=== PATIENT | female | born 1950 | race Caucasian/White ===

== ENCOUNTER 2018-09-06 18:15 | Observation (INO) ==
[2018-09-06] MEDS ORDERED: Naloxone 0.4 MG/ML INJ IVP PRN (20:27)
[2018-09-06] MEDS ORDERED: Ondansetron 4 MG/2 ML VIAL IVP PRN (20:27)
--- NOTE | 2018-09-06 20:39 | Internal Med History&Physical ---
Date of Encounter: 09/06/18 Time of Encounter: 20:39 Internal Medicine - H&P: HPI Chief complaint: Flank pain History of present illness: Ms. Naylor is a 67 year old female with PMH of hyperlipidemia, tradive dyskinesia , HLD, GERD and long history of kidney stones who presented from [facility] for UTI, Kidney stone and hydronephrosis. The patient presented with Left lower quadrant pain, left mid back pain associated with nausea with no vomiting. The patient describes the pain as sharp in character with no radiation and associated with decreased urinary frequency. The patient has a log history of kidney stone that she used to pass spontaneously. The patient was evaluated by the ER staff and CT scan of the abdomen revealed 11 mm stone within the left renal pelvis with mild left hydronephrosis, urology was consulted and patient was transferred to [facility] for further evaluation and management. Past Med Surg Social Fam HX - Past Medical History Medical history: COPD, hyperlipidemia, kidney stones - Family History Mother Living Status: Cause of : kidney failure Father Living Status: Cause of : prostate cancer Internal Medicine - H&P: Meds Albuterol Neb [Proventil Neb] 2.5 mg IH Q6HR PRN 09/06/18 [History] Albuterol Sulfate [Ventolin Hfa] 2 puff IN Q6HR PRN 09/06/18 [History] Ascorbate Calcium/Bioflavonoid [Deisy-C 1,000 mg Tablet] 1 each PO DAILY 09/06 [History] Aspirin [Lo-Dose Aspirin EC] 81 mg PO BID 09/06/18 [History] Cholecalciferol (D-3) [Vitamin D] 1,000 unit PO DAILY 09/06/18 [History] Cyanocobalamin (Vitamin B-12) [Vitamin B12] 500 mcg PO DAILY 09/06/18 [History] Duloxetine HCl [Cymbalta] 60 mg PO BID 09/06/18 [History] Fluticasone/Salmeterol [Advair 100-50 Diskus] 1 each IH BID 09/06/18 [History] Gabapentin [Neurontin] 600 mg PO TID 09/06/18 [History] Multivitamin [Daily Multiple Vitamin] 1 each PO DAILY 09/06/18 [History] [place]-3S/Dha/Epa/Fish Oil [Fish Oil 1,200 mg Softgel] 1,200 mg PO BID 09/06/18 [History] Omeprazole [PriLOSEC] 40 mg PO DAILY 09/06/18 [History] RisperiDONE [Risperdal] 0.5 mg PO DAILY 09/06/18 [History] Rosuvastatin [Crestor] 20 mg PO HS 09/06/18 [History] Ubidecarenone [Coenzyme Q10] 100 mg PO DAILY 09/06/18 [History] Vitamin E 400 unit PO DAILY 09/06/18 [History] clonazePAM [Clonazepam] 0.5 mg PO TID 09/06/18 [History] Allergy/AdvReac Type Severity Reaction Status Date / Time Penicillins Allergy Hives Verified 07/11/18 11:27 phenobarbital Allergy See Verified 09/06/18 20:50 Comments adhesive tape AdvReac See Verified 09/06/18 20:50 Comments codeine AdvReac Difficulty Verified 07/11/18 11:28 Breathing All Systems PM: A 10-system review of systems was performed and is negative for pertinent findings except as documented above in the HPI. - Constitutional Vitals: Temp Pulse Resp BP Pulse Ox 99.0 F 93 17 91/61 96 09/06/18 20:24 09/06/18 20:24 09/06/18 20:24 09/06/18 20:24 09/06/18 20:24 General appearance: Present: A&O X 3 Exam: ` - Head Head exam: Present: atraumatic, normocephalic - Neck Neck exam general surgery: Present: supple, trachea midline. Absent: lymphadenopathy - Respiratory Respiratory exam: Present: CTAB. Absent: accessory muscle use, rales, rhonchi, wheezes - Cardiovascular Cardiovascular exam: Present: RRR, +S1, +S2. Absent: diastolic murmur, gallop, rubs, systolic murmur - GI/Abdominal GI/Abdominal exam: Present: normal bowel sounds, soft, no peritoneal signs. Absent: distended, tenderness - Extremities Exam Extremities exam: Present: warm, radial pulses palpable and symmetrical. Absent: calf tenderness, cyanotic, pedal edema Internal Med - H&P Results - Labs CBC & Chem 7: 09/06/18 21:05 09/06/18 21:05 - Assessment and Plan (1) UTI (urinary tract infection) Current Visit: Yes Status: Acute Assessment and plan: We will start the patient on empiric antibiotic with Rocephin. We will obtain blood culture, urine culture and adjust antibiotic regimen accordingly if indicated. Qualifiers: Qualified Code(s): N39.0 - Urinary tract infection, site not specified (2) Kidney stone Current Visit: Yes Status: Acute Assessment and plan: Urology was consulted for further evaluation and management and will see the patient in a.m. (3) Hydronephrosis Current Visit: Yes Status: Acute Assessment and plan: Urology was consulted for further evaluation and management and will see the patient in a.m. Qualifiers: Qualified Code(s): N13.30 - Unspecified hydronephrosis (4) Hyperlipidemia Current Visit: Yes Status: Acute Assessment and plan: We will continue home statin and obtain fasting profile in a.m. Qualifiers: Qualified Code(s): E78.5 - Hyperlipidemia, unspecified (5) COPD (chronic obstructive pulmonary disease) Current Visit: Yes Status: Acute Assessment and plan: We will start the patient on DuoNeb Qualifiers: Qualified Code(s): J44.9 - Chronic obstructive pulmonary disease, unspecified (6) DVT prophylaxis Current Visit: Yes Status: Acute Assessment and plan: We will start the patient on SCDs. - Time Spent With Patient Total time spent is greater than 50% in coordination of care (as documented) at patient's floor/unit and/or counseling patient:
[2018-09-06 21:17] LABS: Basophils % 0.2 %; Hematocrit 39.5 % (35.3-44.9); Hemoglobin 12.1 g/dL (11.5-15.4); Immature Granulocytes % 0.8 % (0-4); Lymphocytes # 0.7 K/mcL (0.6-4.6); Lymphocytes % 5.2 %; Mean Corpuscular HGB Conc 30.6 g/dL (31.6-35.5); Mean Corpuscular Hemoglobin 28.3 pg (28.0-33.3); Mean Corpuscular Volume 92.3 fL (83.0-100.0); Mean Platelet Volume 10.8 fL (9.4-12.4); Monocytes % 7.1 %; Neutrophils # 12.3 K/mcL (1.6-8.9); Platelet Count 225 K/mcL (140-400); Red Blood Count 4.28 M/mcL (3.82-4.97); Red Cell Distribution Width 14.7 % (11.5-14.5); Segmented Neutrophils % 86.7 %; White Blood Count 14.2 K/mcL (4.3-11.1)
[2018-09-06 21:25] LABS: INR 1.2; Prothrombin Time 13.8 Seconds (9.4-12.1)
[2018-09-06 21:28] LABS: Activated Partial Thrombo Time 30.9 Seconds (26.0-36.0)
[2018-09-06 21:37] LABS: Alanine Aminotransferase 8 Units/L (7-52); Albumin 3.5 g/dL (3.5-5.7); Albumin/Globulin Ratio 1.3 (1.1-2.2); Alkaline Phosphatase 65 Units/L (34-104); Aspartate Amino Transferase 15 Units/L (13-39); BUN/Creatinine Ratio 13 (6-26); Blood Urea Nitrogen 11 mg/dL (8-23); Calcium 9.2 mg/dL (8.6-10.3); Carbon Dioxide 29 mEq/L (23-29); Chloride 101 mEq/L (98-107); Globulin 2.7 g/dL (2.4-3.5); Glucose 114 mg/dL (70-105); Magnesium 1.5 mg/dL (1.6-2.6); Osmolality,Calculated 284 (280-300); Phosphorous 2.1 mg/dL (2.7-4.5); Potassium 3.6 mEq/L (3.5-5.1); Sodium 137 mEq/L (136-145); Total Protein 6.2 g/dL (6.4-8.9); eGFR For African Americans > 60 (> 60); eGFR For Non-African Americans > 60 (> 60)
[2018-09-06 22:14] LABS: Bilirubin,Urine Negative (Negative); Blood,Urine Large (Negative); Clarity,Urine Cloudy (Clear); Color,Urine Yellow (Yellow); Glucose,Urine (UA) Normal (Normal); Ketones,Urine Negative (Negative); Leukocyte Esterase,Urine Large (Negative); Nitrite,Urine Positive (Negative); Protein,Urine 100 mg/dL (Neg-Trace); Specific Gravity,Urine > 1.030 (1.010-1.025); Urobilinogen,Urine Normal (Normal)
[2018-09-06 22:16] LABS: Bacteria,Urine None Seen per hpf (None-Few); Hyaline Casts,Urine None Seen per lpf (None-Few); RBC,Urine 30-50 per hpf (0-3); Squamous Epithelial Cell,Urine Many per lpf (None-Few); WBC,Urine TNTC per hpf (0-3)
[2018-09-07] MEDS: 0.9 % Sodium Chloride 1,000 ML IVC SCH ×2 (00:17→09:56)
[2018-09-07] MEDS: Acetaminophen 325 MG TABLET PO PRN ×3 (00:49→14:17)
[2018-09-07] MEDS ORDERED: cefTRIAXone 1,000 MG in Water for inj. (sterile) 10 ML IVPB ONE (01:32)
[2018-09-07 02:04] LABS: Chol/HDL Ratio 2.2 (0-4.9)
[2018-09-07] MEDS ORDERED: Naloxone 0.4 MG/ML INJ IVP PRN ×2 (07:37→19:45)
[2018-09-07 09:45] LABS: Basophils % 0.2 %; Eosinophils # 0.1 K/mcL (0.0-0.6); Eosinophils % 0.4 %; Hematocrit 39.9 % (35.3-44.9); Hemoglobin 12.1 g/dL (11.5-15.4); Immature Granulocytes % 0.5 % (0-4); Lymphocytes # 1.1 K/mcL (0.6-4.6); Lymphocytes % 9.6 %; Mean Corpuscular HGB Conc 30.3 g/dL (31.6-35.5); Mean Corpuscular Volume 92.4 fL (83.0-100.0); Mean Platelet Volume 10.7 fL (9.4-12.4); Monocytes % 8.8 %; Neutrophils # 9.2 K/mcL (1.6-8.9); Platelet Count 209 K/mcL (140-400); Red Blood Count 4.32 M/mcL (3.82-4.97); Segmented Neutrophils % 80.5 %; White Blood Count 11.5 K/mcL (4.3-11.1)
[2018-09-07 09:56] LABS: Alanine Aminotransferase 8 Units/L (7-52); Albumin 3.7 g/dL (3.5-5.7); Albumin/Globulin Ratio 1.4 (1.1-2.2); Alkaline Phosphatase 68 Units/L (34-104); Aspartate Amino Transferase 14 Units/L (13-39); BUN/Creatinine Ratio 16 (6-26); Blood Urea Nitrogen 13 mg/dL (8-23); Calcium 9.3 mg/dL (8.6-10.3); Carbon Dioxide 27 mEq/L (23-29); Chloride 104 mEq/L (98-107); Globulin 2.6 g/dL (2.4-3.5); Glucose 100 mg/dL (70-105); Magnesium 1.6 mg/dL (1.6-2.6); Osmolality,Calculated 284 (280-300); Phosphorous 3.1 mg/dL (2.7-4.5); Potassium 3.6 mEq/L (3.5-5.1); Sodium 137 mEq/L (136-145); Total Protein 6.3 g/dL (6.4-8.9); eGFR For African Americans > 60 (> 60); eGFR For Non-African Americans > 60 (> 60)
[2018-09-07 10:04] LABS: INR 1.3; Prothrombin Time 14.3 Seconds (9.4-12.1)
[2018-09-07 10:07] LABS: Activated Partial Thrombo Time 31.3 Seconds (26.0-36.0)
--- NOTE | 2018-09-07 11:26 | Urology - Consult Note ---
Date of Encounter: 09/07/18 Time of Encounter: 10:45 - Assessment and Plan (1) Hydronephrosis Current Visit: Yes Status: Acute Assessment and plan: Patient is 67-year-old female who presents with an 11 mm left renal pelvis stone and hydronephrosis. Renal function is reassuring with a GFR greater than 60. Patient is tentatively scheduled to undergo urinary diversion by ureteral stent placement later this afternoon with Dr. Jimenez. Qualifiers: Hydronephrosis type: with renal calculous obstruction Qualified Code(s): N13.2 - Hydronephrosis with renal and ureteral calculous obstruction (2) Kidney stone Current Visit: Yes Status: Acute Assessment and plan: Patient is a 67-year-old female who presents with an 11 mm left renal pelvis stone. We discussed surgical risks and benefits, and patient verbalized understanding. Patient is to remain nothing by mouth, and she has signed a surgical consent. Patient is prepared undergo a cystoscopy and left ureteral stent placement later this afternoon with Dr. Jimenez. Patient is aware she will require a staged stone extraction procedure as an outpatient. (3) UTI (urinary tract infection) Current Visit: Yes Status: Acute Assessment and plan: Patient is a 67-year-old female who presents with a history of a nitrate posi tive urinalysis. Blood and urine cultures are pending. Vital signs are stable and afebrile. White blood cell count on admission was 14.2 and is now 11.5. Patient has received IV Rocephin. We will continue to follow urine culture. Qualifiers: Urinary tract infection type: site unspecified Hematuria presence: without hematuria Qualified Code(s): N39.0 - Urinary tract infection, site not specified Urology CN:HPI Consult date: 09/07/18 Reason for consult Urology: Hydronephrosis (left renal stone; UTI) Requesting physician: Rachel Powers History of present illness: Patient is a 67-year-old female who presents with an 11 mm left renal pelvis stone, hydronephrosis and a urinary tract infection. Patient initially presented to [facility] with acute onset of left flank pain, left upper abdominal pain and nausea. Patient underwent a CT of the abdomen and pelvis revealing an 11 mm left renal pelvis stone and hydronephrosis. Patient was also found to have a nitrite positive urinalysis. Patient was subsequently transferred to [facility] for urologic intervention. Patient reports a long-standing history of nephrolithiasis, and she states her last stone was approximately 10 years ago. Patient reports passing all prior stones by medical expulsion. Patient has a significant family history of renal stones through her mother and father. Currently, patient is sitting upright in chair in no apparent distress, and she denies any dysuria, gross hematuria, fever or chills. Past Med Surg Social Fam HX - Past Medical History Medical history: COPD, hyperlipidemia, kidney stones Additional medical history: tardive dyskinesia, osteoarthritis Psychiatric history: anxiety, depression - Past Surgical History Surgical History: appendectomy, cholecystectomy, hysterectomy, knee replacement - Social History Smoking Status: Never smoker Alcohol use: none Drug use: none - Family History Mother Living Status: Cause of : kidney failure Father Living Status: Cause of : prostate cancer Medications and Allergies Albuterol Neb [Proventil Neb] 2.5 mg IH Q6HR PRN 09/06/18 [History] Albuterol Sulfate [Ventolin Hfa] 2 puff IN Q6HR PRN 09/06/18 [History] Ascorbate Calcium/Bioflavonoid [Deisy-C 1,000 mg Tablet] 1 each PO DAILY 09/06/18 [History] Aspirin [Lo-Dose Aspirin EC] 81 mg PO BID 09/06/18 [History] Cholecalciferol (D-3) [Vitamin D] 1,000 unit PO DAILY 09/06/18 [History] Cyanocobalamin (Vitamin B-12) [Vitamin B12] 500 mcg PO DAILY 09/06/18 [History] Duloxetine HCl [Cymbalta] 60 mg PO BID 09/06/18 [History] Fluticasone/Salmeterol [Advair 100-50 Diskus] 1 each IH BID 09/06/18 [History] Gabapentin [Neurontin] 600 mg PO TID 09/06/18 [History] Multivitamin [Daily Multiple Vitamin] 1 each PO DAILY 09/06/18 [History] [place]-3S/Dha/Epa/Fish Oil [Fish Oil 1,200 mg Softgel] 1,200 mg PO BID 09/06/18 [History] Omeprazole [PriLOSEC] 40 mg PO DAILY 09/06/18 [History] RisperiDONE [Risperdal] 0.5 mg PO DAILY 09/06/18 [History] Rosuvastatin [Crestor] 20 mg PO HS 09/06/18 [History] Ubidecarenone [Coenzyme Q10] 100 mg PO DAILY 09/06/18 [History] Vitamin E 400 unit PO DAILY 09/06/18 [History] clonazePAM [Clonazepam] 0.5 mg PO TID 09/06/18 [History] Allergy/AdvReac Type Severity Reaction Status Date / Time Penicillins Allergy Hives Verified 07/11/18 11:27 phenobarbital Allergy See Verified 09/06/18 20:50 Comments adhesive tape AdvReac See Verified 09/06/18 20:50 Comments codeine AdvReac Difficulty Verified 07/11/18 11:28 Breathing Review of Systems - Constitutional no chills, no fatigue, no fever(s) - EENT Nose, mouth and throat: no dizziness, no headache(s) - Cardiovascular no chest pain, no diaphoresis, no dyspnea - Respiratory no cough, no dyspnea - Gastrointestinal abdominal pain, nausea, no vomiting - Genitourinary Genitourinary: flank pain, no change in urinary stream, no difficulty urinating, no dysuria, no hematuria, no urinary frequency, no urinary hesitancy, no urinary incontinence, no urinary urgency - Integumentary no erythema, no rash - Neurological other (Patient has tardive dyskinesia), no confusion, no syncope - Psychiatric no anxiety, no confusion - Hematologic/Lymphatic no easy bleeding, no easy bruising - Allergic/Immunologic no throat swelling, no wheezing Exam Initial Vital Signs Temp Pulse Resp BP Pulse Ox 99.0 F 93 17 91/61 96 09/06/18 20:24 09/06/18 20:24 09/06/18 20:24 09/06/18 20:24 09/06/18 20:24 - General physical appearance Present: no distress, no pain, obese - Eyes Present: PERRL, normal ocular movement - ENT Present: normal nares, no hearing loss, no congestion - Neck Present: no masses, trachea midline, no lymphadenopathy - Respiratory Present: normal respiratory effort - Cardiovascular Cardiovascular exam IM: RRR - Abdomen Abdomen: Present: soft, non tender, surgical scars (Midline laparotomy). Absent: distended - Genitourinary Present: other (No CVAT) - Integumentary Present: no rash, no abnormal pigmentation - Neurologic Present: normal coordination, other (Tardive dyskinesia; facial tremor) - Musculoskeletal Present: other (Normal posture) Urology Results - Labs 09/07/18 09:25 09/07/18 09:25 Abnormal lab results WBC 11.5 K/mcL (4.3-11.1) H 09/07/18 09:25 MCHC 30.3 g/dL (31.6-35.5) L 09/07/18 09:25 RDW 15.0 % (11.5-14.5) H 09/07/18 09:25 Neutrophils # 9.2 K/mcL (1.6-8.9) H 09/07/18 09:25 PT 14.3 Seconds (9.4-12.1) H 09/07/18 09:25 Glucose 114 mg/dL (70-105) H 09/06/18 21:05 Phosphorus 2.1 mg/dL (2.7-4.5) L 09/06/18 21:05 Magnesium 1.5 mg/dL (1.6-2.6) L 09/06/18 21:05 Serum Total Protein 6.3 g/dL (6.4-8.9) L 09/07/18 09:25 Urine Clarity Cloudy (Clear) A 09/06/18 21:50 Ur Specific [place] > 1.030 (1.010-1.025) H 09/06/18 21:50 Urine Protein 100 mg/dL (Neg-Trace) H 09/06/18 21:50 Urine Blood Large (Negative) H 09/06/18 21:50 Urine Nitrite Positive (Negative) A 09/06/18 21:50 Ur Leukocyte Esterase Large (Negative) H 09/06/18 21:50 Urine Microscopic RBC 30-50 per hpf (0-3) H 09/06/18 21:50 Urine Microscopic WBC TNTC per hpf (0-3) H 09/06/18 21:50 Ur Squamous Epith Cells Many per lpf (None-Few) H 09/06/18 21:50 Diabetes panel 09/06/18 09/07/18 09/07/18 Range/Units 21:05 00:22 09:25 Sodium 137 137 (136-145) mEq/L Potassium 3.6 3.6 (3.5-5.1) mEq/L Chloride 101 104 (98-107) mEq/L Carbon Dioxide 29 27 (23-29) mEq/L BUN 11 13 (8-23) mg/dL Creatinine 0.84 0.81 (0.60-1.20) mg/dL Glucose 114 H 100 (70-105) mg/dL Calcium 9.2 9.3 (8.6-10.3) mg/dL AST 15 14 (13-39) Units/L ALT 8 8 (7-52) Units/L Alkaline Phosphatase 65 68 (34-104) Units/L Albumin 3.5 3.7 (3.5-5.7) g/dL Triglycerides 92 (< 150) mg/dL HDL Cholesterol 48 (40-59) mg/dL Calcium panel 09/06/18 09/07/18 Range/Units 21:05 09:25 Calcium 9.2 9.3 (8.6-10.3) mg/dL Phosphorus 2.1 L 3.1 (2.7-4.5) mg/dL Albumin 3.5 3.7 (3.5-5.7) g/dL Pituitary panel 09/06/18 09/07/18 Range/Units 21:05 09:25 Sodium 137 137 (136-145) mEq/L Potassium 3.6 3.6 (3.5-5.1) mEq/L Chloride 101 104 (98-107) mEq/L Carbon Dioxide 29 27 (23-29) mEq/L BUN 11 13 (8-23) mg/dL Creatinine 0.84 0.81 (0.60-1.20) mg/dL Glucose 114 H 100 (70-105) mg/dL Calcium 9.2 9.3 (8.6-10.3) mg/dL Adrenal panel 09/06/18 09/07/18 Range/Units 21:05 09:25 Sodium 137 137 (136-145) mEq/L Potassium 3.6 3.6 (3.5-5.1) mEq/L Chloride 101 104 (98-107) mEq/L Carbon Dioxide 29 27 (23-29) mEq/L BUN 11 13 (8-23) mg/dL Creatinine 0.84 0.81 (0.60-1.20) mg/dL Glucose 114 H 100 (70-105) mg/dL Calcium 9.2 9.3 (8.6-10.3) mg/dL Total Bilirubin 1.0 1.0 (0.3-1.0) mg/dL AST 15 14 (13-39) Units/L ALT 8 8 (7-52) Units/L Alkaline Phosphatase 65 68 (34-104) Units/L Albumin 3.5 3.7 (3.5-5.7) g/dL All other labs normal. - Imaging Abdominal x-ray: report reviewed, image reviewed Consult Discharge Plan - Plan Referrals: Yoav Franco DO [Primary Care Provider] -
--- NOTE | 2018-09-07 11:58 | Internal Med Progress Note ---
Hospitalist Progress Note - Encounter Date of Encounter: 09/07/18 Time of Encounter: 11:55 - Subjective Interval History: Patient admitted last night for kidney stone in conjunction with urinary tract infection. Pain control currently, however, given size of stone will be going for urological procedure today - Exam Vitals: Temp Pulse Resp BP Pulse Ox 98.3 F 80 16 94/64 94 09/07/18 06:29 09/07/18 06:29 09/07/18 06:29 09/07/18 06:29 09/07/18 06:29 Exam: General: Ill-appearing and in no acute distress HEENT: No erythema of posterior pharynx. No exudates. Lymphatics: No mandibular or cervical lymphadenopathy Cardiovascular: RRR. No murmurs. No chest wall tenderness. Lungs: Clear to auscelltation bilaterally. Regular chest rise. Abdomen: Mild R flank tenderness. No rebound or gaurding. Nl bowel sounds. Extremities: No edema. 2+ pulses radial and pedal pulses Skin: No rahses, abrasions, or contusions. Nl cap refill. Psych: Nl attention. A&Ox3 Neuro: mathematical technician II-XII intact. 5/5 strength. Sensation to light touch and pinprick intact. - Assessment and Plan (1) Kidney stone Current Visit: Yes Status: Acute Assessment and Plan: Patient with history of infrequent renal stones presents with acute colicky left flank pain in the setting of UA with large amount of blood and concern for infection and imaging with 11 mm left renal pelvis stone with hydronephrosis. -Pain currently controlled -Given size of stone, will need urological intervention with ureteral stent placement this afternoon. She will need a staged stone extraction procedure as outpatient PLAN: - Ureteral stent placement this afternoon - Pain control (2) Hydronephrosis Current Visit: Yes Status: Acute Assessment and Plan: See above (3) UTI (urinary tract infection) Current Visit: Yes Status: Acute Assessment and Plan: Unclear if this represents acute cystitis versus asymptomatic bacteriuria. In the setting of obstructive process with kidney stone, reasonable to treat with antibiotics. - IV ceftriaxone - Follow up culture (4) COPD (chronic obstructive pulmonary disease) Current Visit: Yes Status: Acute Assessment and Plan: Continue home medications DVT Prophylaxis: Lovenox - Time Spent with Patient Total time spent is greater than 50% in coordination of care (as documented) at patient's floor/unit and/or counseling patient: Greater than 35 minutes Plan of Care Discussed with: patient Internal Medicine: Result - Labs CBC & Chem 7: 09/07/18 09:25 09/07/18 09:25 Labs: Short CBC 09/06/18 09/07/18 Range/Units 21:05 09:25 WBC 14.2 H 11.5 H (4.3-11.1) K/mcL Hgb 12.1 12.1 (11.5-15.4) g/dL Hct 39.5 39.9 (35.3-44.9) % Plt Count 225 209 (140-400) K/mcL Neutrophils # 12.3 H 9.2 H (1.6-8.9) K/mcL BMP 09/06/18 09/07/18 21:05 09:25 Sodium 137 137 Potassium 3.6 3.6 Chloride 101 104 Carbon Dioxide 29 27 BUN 11 13 Creatinine 0.84 0.81 Glucose 114 H 100 Calcium 9.2 9.3 Liver Function 09/06/18 09/07/18 Range/Units 21:05 09:25 Total Bilirubin 1.0 1.0 (0.3-1.0) mg/dL AST 15 14 (13-39) Units/L ALT 8 8 (7-52) Units/L Alkaline Phosphatase 65 68 (34-104) Units/L Albumin 3.5 3.7 (3.5-5.7) g/dL Urine 09/06/18 Range/Units 21:50 Urine Color Yellow (Yellow) Urine Clarity Cloudy A (Clear) Urine pH 6.0 (5.0-8.0) pH Units Ur Specific [place] > 1.030 H (1.010-1.025) Urine Protein 100 H (Neg-Trace) mg/dL Urine Glucose (UA) Normal (Normal) mg/dL - ABG Interpretation ABG results: PT/INR, D-dimer PT 14.3 Seconds (9.4-12.1) H 09/07/18 09:25 - Impressions Impressions KUB X-Ray 09/07/18 06:34 IMPRESSION: 1.1 cm x 7 mm stone left side of the abdomen correlating to the calculus seen on CT from 1 day earlier. D/ / 09/07/2018 08:31:47 Mario Gifford MD / [email or web address] Interpreting Provider: Mario Gifford MD Consult Discharge Plan - Plan Referrals: Yoav Franco DO [Primary Care Provider] - (2) Hydronephrosis Qualifiers: Hydronephrosis type: with renal calculous obstruction Qualified Code(s): N13.2 - Hydronephrosis with renal and ureteral calculous obstruction (3) UTI (urinary tract infection) Qualifiers: Urinary tract infection type: site unspecified Hematuria presence: with hematuria Qualified Code(s): N39.0 - Urinary tract infection, site not specified; R31.9 - Hematuria, unspecified (4) COPD (chronic obstructive pulmonary disease) Qualifiers: Qualified Code(s): J44.9 - Chronic obstructive pulmonary disease, unspecified
[2018-09-07] MEDS ORDERED: Albuterol 2.5 MG/3 ML NEBULIZER IH PRN ×2 (12:04→19:45)
[2018-09-07] MEDS ORDERED: Gabapentin 300 MG CAPSULE PO SCH (15:00)
--- NOTE | 2018-09-07 17:58 | Anesthesia Evaluation PreOp ---
Date of Encounter: 09/07/18 Time of Encounter: 18:00 - Past History Planned Operation: Cystoscopy Stent Cardiac History: Hyperlipidemia Pulmonary History: COPD CRITICAL CARE PHYSICIAN ASSISTANT History: Other (Tardive Dyskinesia) Other Medical History: Denies Any Significant HX, GERD, Other ([place]) Anesthesia History: No Prior Anesthetic Complications Alcohol Use: none Drug use: none Medications and Allergies Albuterol Neb [Proventil Neb] 2.5 mg IH Q6HR PRN 09/06/18 [History] Albuterol Sulfate [Ventolin Hfa] 2 puff IN Q6HR PRN 09/06/18 [History] Ascorbate Calcium/Bioflavonoid [Deisy-C 1,000 mg Tablet] 1 each PO DAILY 09/06/18 [History] Aspirin [Lo-Dose Aspirin EC] 81 mg PO BID 09/06/18 [History] Cholecalciferol (D-3) [Vitamin D] 1,000 unit PO DAILY 09/06/18 [History] Cyanocobalamin (Vitamin B-12) [Vitamin B12] 500 mcg PO DAILY 09/06/18 [History] Duloxetine HCl [Cymbalta] 60 mg PO BID 09/06/18 [History] Fluticasone/Salmeterol [Advair 100-50 Diskus] 1 each IH BID 09/06/18 [History] Gabapentin [Neurontin] 600 mg PO TID 09/06/18 [History] Multivitamin [Daily Multiple Vitamin] 1 each PO DAILY 09/06/18 [History] [place]-3S/Dha/Epa/Fish Oil [Fish Oil 1,200 mg Softgel] 1,200 mg PO BID 09/06/18 [History] Omeprazole [PriLOSEC] 40 mg PO DAILY 09/06/18 [History] RisperiDONE [Risperdal] 0.5 mg PO DAILY 09/06/18 [History] Rosuvastatin [Crestor] 20 mg PO HS 09/06/18 [History] Ubidecarenone [Coenzyme Q10] 100 mg PO DAILY 09/06/18 [History] Vitamin E 400 unit PO DAILY 09/06/18 [History] clonazePAM [Clonazepam] 0.5 mg PO TID 09/06/18 [History] Allergy/AdvReac Type Severity Reaction Status Date / Time Penicillins Allergy Hives Verified 07/11/18 11:27 phenobarbital Allergy See Verified 09/06/18 20:50 Comments adhesive tape AdvReac See Verified 09/06/18 20:50 Comments codeine AdvReac Difficulty Verified 07/11/18 11:28 Breathing - Meds/Allergy Pre-op Review Medications Reviewed: Yes Allergies Reviewed: Yes Beta Blockers on Current Med List: No Anesthesia Results - Labs 09/07/18 09:25 09/07/18 09:25 Anesthesia Exam O2 Sat Height 1.6 m Weight 107 kg Weight 106.594 kg O2 Sat by Pulse Oximetry 93 O2 Sat by Pulse Oximetry 94 O2 Sat by Pulse Oximetry 90 O2 Sat by Pulse Oximetry 91 O2 Sat by Pulse Oximetry 96 Vital Signs Temp Pulse Resp BP Pulse Ox 99.0 F 93 17 91/61 96 09/06/18 20:24 09/06/18 20:24 09/06/18 20:24 09/06/18 20:24 09/06/18 20:24 Height: 5'3 Weight: 235 lbs NPO (# of Hours): MN Pain Scale: 0 - HEENT Pupil (Motor): Pupils equal, EOMI Mallampati: III Oral Opening: Less than or equal to 3 - CRITICAL CARE PHYSICIAN ASSISTANT LOC: Oriented CRITICAL CARE PHYSICIAN ASSISTANT Motor: Normal RUE, Normal LUE, Normal RLE, Normal LLE, Normal Face CRITICAL CARE PHYSICIAN ASSISTANT Sensory: Normal: RUE, LUE, RLE, LLE, Face - Cardiac Rhythm: Regular Murmur: None JVD: No Carotid Bruit: No - Pulmonary Breath Sounds: bilateral Clear Respiratory Effort: Symmetrical Anesthesia Assess/Plan ASA Score: 3 Level of consciousness: Cooperative Anesthetic Plan: General Autologous Blood: No Monitoring Plan: Standard Monitors Recovery Plan: PACU (Discussed GA, agrees to proceed)
[2018-09-07] MEDS ORDERED: Albuterol 2.5 MG/3 ML NEBULIZER ONE (18:01)
[2018-09-07] MEDS ORDERED: Famotidine 20 MG/2 ML VIAL ONE (18:03)
[2018-09-07] MEDS ORDERED: *HR* FentaNYL (PF) 100 MCG/2 ML VIAL ONE (18:03)
[2018-09-07] MEDS ORDERED: *HR* Propofol 200 MG/20 ML VIAL IVP ONE (18:04)
[2018-09-07] MEDS ORDERED: Lidocaine -MPF 2% 2 ML VIAL ONE (18:05)
[2018-09-07] MEDS ORDERED: *HR* Succinylcholine 200 MG/10 ML VIAL IVP ONE (18:07)
[2018-09-07] MEDS ORDERED: Ondansetron 4 MG/2 ML VIAL ONE (18:08)
[2018-09-07] MEDS ORDERED: Dexamethasone 4 MG/ML VIAL ONE (18:08)
[2018-09-07] MEDS ORDERED: Isovue-300 50 ML VIAL ONE (18:28)
[2018-09-07] MEDS ORDERED: *HR* PHENYLEPHRINE 1,000 MCG/10 ML SYRINGE IVP ONE (18:51)
--- NOTE | 2018-09-07 18:59 | Operative Note ---
Date of procedure: 09/07/18 Pre-op diagnosis: Left renal stone Post-op diagnosis: same Procedure: Cystoscopy, left ureteral stent placement Implants: 6 [place] x 24 cm JJ stent Complications: none Anesthesia: GETA Surgeon: Juan Pablo Jimenez Was there an registered dental assistant rda present: No Estimated blood loss (cc): 0 Specimen: none Condition: stable Disposition: PACU Procedure in Detail: Indications: Adrianna is a 67-year-old woman who has a history of nephrolithiasis. She had a CT which showed a left ureteropelvic junction stone. There is concern for hydronephrosis. She elected to undergo a cystoscopy and left ureteral stent placement. She was aware of the risks of the procedure including but not limited to bleeding, infection, injury to other structures, need for further procedures, stent irritation, need for nephrostomy tube, need for open repair, risks otherwise unforeseen, and the risk of anesthesia. She is willing to proceed. Procedure in Detail: After informed consent was obtained the patient was brought back to the operating room and placed in supine position. A time out was performed. General anesthesia was administered and an laryngeal mask airway was placed. She was then placed in the lithotomy position. She was prepped and draped in the usual sterile fashion. Cystoscopy was performed. The anterior urethra was normal. There was no evidence of bladder tumors. The ureteral orifices were in the normal orthotopic position. There was no duplication of the ureteral orifices. The sensor wire was placed in the left ureteral orifice. The wire was then brought up into the kidney under fluoroscopic guidance. The wire was able to move past the stone and brought into the kidney under fluoroscopic guidance. A 6 [place] by 24cm JJ stent was then placed. The dangle strings were removed. The bladder was drained. The patient was then awakened from general anesthesia and brought to recovery room in good condition. All sponge, needle, and instrument counts were correct.
[2018-09-07] MEDS ORDERED: Acetaminophen 325 MG TABLET PO PRN (19:45)
[2018-09-07] MEDS ORDERED: Ondansetron 4 MG/2 ML VIAL IVP PRN (19:45)
[2018-09-07] MEDS ORDERED: NON-FORMULARY MEDICATION 1 EACH EACH (Fluticasone/Salmeterol [Advair 100-50 Diskus] 1 EACH IH SCH (21:00)
[2018-09-07] MEDS ORDERED: Aspirin Enteric Coated 81 MG Tablet PO SCH (21:00)
[2018-09-07] MEDS ORDERED: cefTRIAXone 1,000 MG in Water for inj. (sterile) 10 ML IVP SCH (21:00)
[2018-09-07] MEDS: Budesonide/Formoterol 80/4.5 MDI IH SCH (21:59)
[2018-09-07] MEDS ORDERED: Budesonide/Formoterol 80/4.5 MDI IH SCH (22:00)
[2018-09-07] MEDS: Gabapentin 300 MG CAPSULE PO SCH (22:30)
[2018-09-07] MEDS: Aspirin Enteric Coated 81 MG Tablet PO SCH (22:30)
[2018-09-08] MEDS ORDERED: cefTRIAXone 1,000 MG in Water for inj. (sterile) 10 ML IVP SCH (02:00)
[2018-09-08] MEDS ORDERED: *HR* Enoxaparin 40 MG/0.4 ML SYRINGE SQ SCH ×2 (06:00)
[2018-09-08 06:19] LABS: Mean Corpuscular HGB Conc 30.8 g/dL (31.6-35.5); Mean Corpuscular Hemoglobin 28.2 pg (28.0-33.3); Mean Corpuscular Volume 91.8 fL (83.0-100.0); Mean Platelet Volume 10.9 fL (9.4-12.4); Platelet Count 218 K/mcL (140-400); Red Blood Count 4.25 M/mcL (3.82-4.97); Red Cell Distribution Width 14.5 % (11.5-14.5); White Blood Count 8.4 K/mcL (4.3-11.1)
[2018-09-08 06:29] LABS: BUN/Creatinine Ratio 14 (6-26); Blood Urea Nitrogen 10 mg/dL (8-23); Calcium 9.7 mg/dL (8.6-10.3); Carbon Dioxide 30 mEq/L (23-29); Chloride 99 mEq/L (98-107); Glucose 126 mg/dL (70-105); Osmolality,Calculated 297 (280-300); Potassium 4.4 mEq/L (3.5-5.1); Sodium 143 mEq/L (136-145); eGFR For African Americans > 60 (> 60); eGFR For Non-African Americans > 60 (> 60)
[2018-09-08] MEDS: Aspirin Enteric Coated 81 MG Tablet PO SCH (07:50)
[2018-09-08] MEDS: Gabapentin 300 MG CAPSULE PO SCH (07:51)
--- NOTE | 2018-09-08 08:10 | Urology Progress Note ---
<Maia Lazo N - Last Filed: 09/08/18 08:08> Date of Encounter: 09/08/18 Time of Encounter: 07:55 - Assessment and Plan (1) Hydronephrosis Current Visit: Yes Status: Acute Assessment and plan: Patient is a 67-year-old female who presents one day status post cystoscopy and left ureteral stent placement. Vital signs are stable and afebrile. White blood cell count and renal function are both reassuring. Urine culture is pending, and patient is receiving IV Rocephin. Patient is okay to discharge from a urologic standpoint, and she has been tentatively scheduled for definitive stone extraction on 09/15/2018, with Dr. Jimenez. We discussed postoperative expectations with indwelling ureteral stent, and patient verbalized understanding. Qualifiers: Hydronephrosis type: with renal calculous obstruction Qualified Code(s): N13.2 - Hydronephrosis with renal and ureteral calculous obstruction (2) Kidney stone Current Visit: Yes Status: Acute (3) UTI (urinary tract infection) Current Visit: Yes Status: Acute Qualifiers: Urinary tract infection type: site unspecified Hematuria presence: with hematuria Qualified Code(s): N39.0 - Urinary tract infection, site not specified Progress Note Narrative: POD #1. Patient seen and examined sitting upright in bed in no apparent distress. Patient is tolerating normal diet without nausea or vomiting. Patient is voiding without difficulty. Patient denies any fever, chills or flank pain. Objective Initial Vital Signs Temp Pulse Resp BP Pulse Ox 99.0 F 93 17 91/61 96 09/06/18 20:24 09/06/18 20:24 09/06/18 20:24 09/06/18 20:24 09/06/18 20:24 - General physical appearance Present: well developed, no distress, no pain - Respiratory Present: normal expansion, normal respiratory effort - Abdomen Present: soft, non tender. Absent: distended - Integumentary Present: no rash, no abnormal pigmentation - Musculoskeletal Present: normal posture - Psychiatric Present: oriented to time, oriented to person, oriented to place, speech is normal, memory intact - Labs 09/08/18 06:00 09/08/18 06:00 Diabetes panel 09/07/18 09/08/18 Range/Units 09:25 06:00 Sodium 137 143 (136-145) mEq/L Potassium 3.6 4.4 (3.5-5.1) mEq/L Chloride 104 99 (98-107) mEq/L Carbon Dioxide 27 30 H (23-29) mEq/L BUN 13 10 (8-23) mg/dL Creatinine 0.81 0.74 (0.60-1.20) mg/dL Glucose 100 126 H (70-105) mg/dL Calcium 9.3 9.7 (8.6-10.3) mg/dL AST 14 (13-39) Units/L ALT 8 (7-52) Units/L Alkaline Phosphatase 68 (34-104) Units/L Albumin 3.7 (3.5-5.7) g/dL Calcium panel 09/07/18 09/08/18 Range/Units 09:25 06:00 Calcium 9.3 9.7 (8.6-10.3) mg/dL Phosphorus 3.1 (2.7-4.5) mg/dL Albumin 3.7 (3.5-5.7) g/dL Pituitary panel 09/07/18 09/08/18 Range/Units 09:25 06:00 Sodium 137 143 (136-145) mEq/L Potassium 3.6 4.4 (3.5-5.1) mEq/L Chloride 104 99 (98-107) mEq/L Carbon Dioxide 27 30 H (23-29) mEq/L BUN 13 10 (8-23) mg/dL Creatinine 0.81 0.74 (0.60-1.20) mg/dL Glucose 100 126 H (70-105) mg/dL Calcium 9.3 9.7 (8.6-10.3) mg/dL Adrenal panel 09/07/18 09/08/18 Range/Units 09:25 06:00 Sodium 137 143 (136-145) mEq/L Potassium 3.6 4.4 (3.5-5.1) mEq/L Chloride 104 99 (98-107) mEq/L Carbon Dioxide 27 30 H (23-29) mEq/L BUN 13 10 (8-23) mg/dL Creatinine 0.81 0.74 (0.60-1.20) mg/dL Glucose 100 126 H (70-105) mg/dL Calcium 9.3 9.7 (8.6-10.3) mg/dL Total Bilirubin 1.0 (0.3-1.0) mg/dL AST 14 (13-39) Units/L ALT 8 (7-52) Units/L Alkaline Phosphatase 68 (34-104) Units/L Albumin 3.7 (3.5-5.7) g/dL Consult Discharge Plan - Plan Referrals: Yoav Franco DO [Primary Care Provider] - Prescriptions: Sulfamethoxazole/Trimeth DS [Bactrim Ds] 1 each PO BID #5 tablet <Juan Pablo Jimenez - Last Filed: 09/08/18 12:20> Date of Encounter: 09/08/18 Objective Initial Vital Signs Temp Pulse Resp BP Pulse Ox 99.0 F 93 17 91/61 96 09/06/18 20:24 09/06/18 20:24 09/06/18 20:24 09/06/18 20:24 09/06/18 20:24 - Labs 09/08/18 06:00 09/08/18 06:00 Diabetes panel 09/08/18 Range/Units 06:00 Sodium 143 (136-145) mEq/L Potassium 4.4 (3.5-5.1) mEq/L Chloride 99 (98-107) mEq/L Carbon Dioxide 30 H (23-29) mEq/L BUN 10 (8-23) mg/dL Creatinine 0.74 (0.60-1.20) mg/dL Glucose 126 H (70-105) mg/dL Calcium 9.7 (8.6-10.3) mg/dL Calcium panel 09/08/18 Range/Units 06:00 Calcium 9.7 (8.6-10.3) mg/dL Pituitary panel 09/08/18 Range/Units 06:00 Sodium 143 (136-145) mEq/L Potassium 4.4 (3.5-5.1) mEq/L Chloride 99 (98-107) mEq/L Carbon Dioxide 30 H (23-29) mEq/L BUN 10 (8-23) mg/dL Creatinine 0.74 (0.60-1.20) mg/dL Glucose 126 H (70-105) mg/dL Calcium 9.7 (8.6-10.3) mg/dL Adrenal panel 09/08/18 Range/Units 06:00 Sodium 143 (136-145) mEq/L Potassium 4.4 (3.5-5.1) mEq/L Chloride 99 (98-107) mEq/L Carbon Dioxide 30 H (23-29) mEq/L BUN 10 (8-23) mg/dL Creatinine 0.74 (0.60-1.20) mg/dL Glucose 126 H (70-105) mg/dL Calcium 9.7 (8.6-10.3) mg/dL
[2018-09-08] MEDS ORDERED: Ubidecarenone [Coenzyme Q10] 100 MG PO SCH (09:00)
[2018-09-08] MEDS ORDERED: risperiDONE 0.25 MG TABLET PO SCH ×3 (09:00→21:00)
[2018-09-08] MEDS ORDERED: COENZYME Q10 100 MG PO SCH (09:00)
--- NOTE | 2018-09-08 10:34 | Discharge Summary ---
Orders not resulted at time of discharge: Pending orders 09/06/18 21:05 Culture,Blood [BC] Stat 09/07/18 00:30 Culture,Urine [RM] Routine 09/09/18 04:00 BMP [Basic Metabolic Panel] AM 0400 CBC no Diff [Complete Blood Count w/o Diff] [HEME] AM 0400 Date of Encounter: 09/08/18 Time of Encounter: 10:31 - Discharge Diagnosis (1) Kidney stone Priority: Primary Status: Acute (2) Hydronephrosis Priority: Secondary Status: Acute Qualifiers: Hydronephrosis type: with renal calculous obstruction Qualified Code(s): N13.2 - Hydronephrosis with renal and ureteral calculous obstruction (3) UTI (urinary tract infection) Priority: Secondary Status: Acute Qualifiers: Urinary tract infection type: acute cystitis Hematuria presence: with hematuria Qualified Code(s): N30.01 - Acute cystitis with hematuria (4) COPD (chronic obstructive pulmonary disease) Priority: Secondary Status: Acute Qualifiers: COPD type: unspecified COPD Qualified Code(s): J44.9 - Chronic obstructive pulmonary disease, unspecified Hospital course: Ms. Naylor is a 67 year old female with history of infrequent renal stones presented with acute colicky left flank pain in the setting of UA with large amount of blood and concern for infection and imaging with 11 mm left renal pelvis stone with hydronephrosis s/p R ureteral stent placement. Urology plans to complete stone extraction at a later date. She will go home to finish a course of antibiotics and follow-up with urology Dr. Jimenez 09/15/2018 with plans for definitive stone extraction. Discharge discussed with: patient - Time Spent with Patient Total time spent providing and/or coordinating discharge services: 35 minutes Time spent: Greater than 30 minutes - Discharge Medications Prescriptions: New Sulfamethoxazole/Trimeth DS [Bactrim Ds] 1 each PO BID #5 tablet Continued Cyanocobalamin (Vitamin B-12) [Vitamin B12] 500 mcg PO DAILY Cholecalciferol (D-3) [Vitamin D] 1,000 unit PO DAILY Multivitamin [Daily Multiple Vitamin] 1 each PO DAILY Albuterol Sulfate [Ventolin Hfa] 2 puff IN Q6HR PRN PRN Reason: Shortness Of Breath/Wheezing RisperiDONE [Risperdal] 0.5 mg PO DAILY Omeprazole [PriLOSEC] 40 mg PO DAILY [place]-3S/Dha/Epa/Fish Oil [Fish Oil 1,200 mg Softgel] 1,200 mg PO BID Gabapentin [Neurontin] 600 mg PO TID Ascorbate Calcium/Bioflavonoid [Deisy-C 1,000 mg Tablet] 1 each PO DAILY Ubidecarenone [Coenzyme Q10] 100 mg PO DAILY Rosuvastatin [Crestor] 20 mg PO HS Duloxetine HCl [Cymbalta] 60 mg PO BID clonazePAM [Clonazepam] 0.5 mg PO TID Aspirin [Lo-Dose Aspirin EC] 81 mg PO BID Fluticasone/Salmeterol [Advair 100-50 Diskus] 1 each IH BID Albuterol Neb [Proventil Neb] 2.5 mg IH Q6HR PRN PRN Reason: Shortness Of Breath Vitamin E 400 unit PO DAILY Home Medications: Albuterol Neb [Proventil Neb] 2.5 mg IH Q6HR PRN 09/06/18 [History] Albuterol Sulfate [Ventolin Hfa] 2 puff IN Q6HR PRN 09/06/18 [History] Ascorbate Calcium/Bioflavonoid [Deisy-C 1,000 mg Tablet] 1 each PO DAILY 09/06/18 [History] Aspirin [Lo-Dose Aspirin EC] 81 mg PO BID 09/06/18 [History] Cholecalciferol (D-3) [Vitamin D] 1,000 unit PO DAILY 09/06/18 [History] Cyanocobalamin (Vitamin B-12) [Vitamin B12] 500 mcg PO DAILY 09/06/18 [History] Duloxetine HCl [Cymbalta] 60 mg PO BID 09/06/18 [History] Fluticasone/Salmeterol [Advair 100-50 Diskus] 1 each IH BID 09/06/18 [History] Gabapentin [Neurontin] 600 mg PO TID 09/06/18 [History] Multivitamin [Daily Multiple Vitamin] 1 each PO DAILY 09/06/18 [History] [place]-3S/Dha/Epa/Fish Oil [Fish Oil 1,200 mg Softgel] 1,200 mg PO BID 09/06/18 [History] Omeprazole [PriLOSEC] 40 mg PO DAILY 09/06/18 [History] RisperiDONE [Risperdal] 0.5 mg PO DAILY 09/06/18 [History] Rosuvastatin [Crestor] 20 mg PO HS 09/06/18 [History] Ubidecarenone [Coenzyme Q10] 100 mg PO DAILY 09/06/18 [History] Vitamin E 400 unit PO DAILY 09/06/18 [History] clonazePAM [Clonazepam] 0.5 mg PO TID 09/06/18 [History] Sulfamethoxazole/Trimeth DS [Bactrim Ds] 1 each PO BID #5 tablet 09/08/18 [Rx] Allergies/Adverse Reactions: Allergy/AdvReac Type Severity Reaction Status Date / Time Penicillins Allergy Hives Verified 07/11/18 11:27 phenobarbital Allergy See Verified 09/06/18 20:50 Comments adhesive tape AdvReac See Verified 09/06/18 20:50 Comments codeine AdvReac Difficulty Verified 07/11/18 11:28 Breathing Date of admission: 09/06/18 20:07 Primary care physician: Yoav Franco DO Consults: 09/07/18 06:05 Consult to Urology [CONS] Routine Consulting Provider: Urology Margaux Reason for Consult: Renal stone, urology was consulted and they agreed to see the patient in consult in a.m. Time Notified: 06:06 Call Completed: Yes - Constitutional Vitals: Temp Pulse Resp BP Pulse Ox 98.7 F 69 15 107/70 93 09/08/18 06:57 09/08/18 06:57 09/08/18 06:57 09/08/18 06:57 09/08/18 06:57 General appearance: Present: A&O X 3 Exam: General: Ill-appearing and in no acute distress HEENT: No erythema of posterior pharynx. No exudates. Lymphatics: No mandibular or cervical lymphadenopathy Cardiovascular: RRR. No murmurs. No chest wall tenderness. Lungs: Clear to auscelltation bilaterally. Regular chest rise. Abdomen: Mild R flank tenderness. No rebound or gaurding. Nl bowel sounds. Extremities: No edema. 2+ pulses radial and pedal pulses Skin: No rahses, abrasions, or contusions. Nl cap refill. Psych: Nl attention. A&Ox3 Neuro: top dyeing machine tender II-XII intact. 5/5 strength. Sensation to light touch and pinprick intact. - Patient Status Disposition: Home, Self-Care Condition: Good Functional capacity at discharge: uses cane/walker Overall status at discharge: patient is progressing back to baseline - Discharge Instructions Follow Up With: Yoav Franco DO [Primary Care Provider] - - Diet and Activity Activity: ambulate only with your walker Diet: advance to your usual diet
[2018-09-08 11:01] VITALS: BP 140/70
[2018-09-08] MEDS: Budesonide/Formoterol 80/4.5 MDI IH SCH (11:15)
[2018-09-08] MEDS ORDERED: Sulfamethoxazole/Trimeth DS 1 EACH TABLET PO SCH (21:00)
== END 2018-09-08 15:20 | disposition home or self-care (01) ==
LOC: 3NENU
PROVIDERS: ADMIT Internal Medicine; ATTEND Student in an Organized Health Care Education/Training Program

== ENCOUNTER 2021-08-25 06:09 | Observation (INO) ==
[2021-08-25] MEDS ORDERED: Ringers Solution, Lactated 1,000 ML IVC SCH ×2 (06:45→13:00)
[2021-08-25] MEDS ORDERED: *HR* FentaNYL (PF) 100 MCG/2 ML VIAL ONE (06:46)
[2021-08-25] MEDS ORDERED: *HR* Midazolam HCl 2 MG/2 ML VIAL ONE (06:47)
[2021-08-25] MEDS ORDERED: Tranexamic Acid 1,000 MG/10 ML VIAL ONE ×2 (06:48→08:03)
[2021-08-25] MEDS ORDERED: ROPIVACAINE/PF/NS 0.25% 1 EACH SYRINGE INTRAART ONE (06:54)
[2021-08-25] MEDS ORDERED: CeFAZolin Syr 2,000MG/20 ML 2,000 MG/20 ML SYRINGE IVPB ONE (06:57)
[2021-08-25] MEDS ORDERED: Famotidine 20 MG/2 ML VIAL IVP ONE (07:00)
[2021-08-25] MEDS ORDERED: Acetaminophen IV 1,000 MG/100 ML BAG IVPB ONE (07:00)
[2021-08-25] MEDS ORDERED: TOTAL JOINT MIXTURE (100ML) INTRAART ONE (07:30)
[2021-08-25] MEDS ORDERED: Povidone-Iodine 45 ML, Sodium Chloride IRRigation 1,000 ML IR ONE (07:30)
[2021-08-25] MEDS ORDERED: Ondansetron 4 MG/2 ML VIAL ONE (07:42)
[2021-08-25] MEDS ORDERED: *HR* Propofol 200 MG/20 ML VIAL IVP ONE (09:17)
[2021-08-25] MEDS ORDERED: *HR* Promethazine 25 MG/ML VIAL IM PRN ×2 (13:00→19:57)
[2021-08-25] MEDS ORDERED: MOM Conc 10 ML UD.LIQ PO PRN ×2 (13:00→19:57)
[2021-08-25] MEDS ORDERED: Sennosides 8.6 MG TABLET PO PRN ×2 (13:00→19:57)
[2021-08-25] MEDS ORDERED: Naloxone 0.4 MG/ML INJ IVP PRN ×2 (13:00→19:57)
[2021-08-25] MEDS ORDERED: *HR* OxyCODONE Immed Rel 5 MG TABLET PO PRN (13:00)
[2021-08-25] MEDS ORDERED: *HR* HYDROmorphone (PF) 1 MG/ML SYRINGE IVP PRN ×2 (13:00→19:57)
[2021-08-25] MEDS ORDERED: Ondansetron 4 MG/2 ML VIAL IVP PRN ×2 (13:00→19:57)
[2021-08-25] MEDS ORDERED: HYDROcodone BIT/Homatropine 5 MG TABLET PO PRN ×2 (13:00→19:57)
[2021-08-25] MEDS ORDERED: Ketorolac 30 MG/ML VIAL IVP SCH ×2 (13:00→20:00)
[2021-08-25] MEDS ORDERED: Ascorbic Acid 500 MG TABLET PO SCH (17:00)
[2021-08-25] MEDS ORDERED: CeFAZolin 2 GM/120 ML BAG IVPB SCH (19:00)
[2021-08-25] MEDS: CeFAZolin 2 GM/120 ML BAG IVPB SCH (21:24)
[2021-08-25] MEDS: *HR* OxyCODONE Immed Rel 5 MG TABLET PO PRN (21:24)
[2021-08-25] MEDS ORDERED: Budesonide/Formoterol 80/4.5 1 PUFF INH IH SCH (22:00)
[2021-08-26 02:38] LABS: Basophils % 0.1 %; Hemoglobin 11.2 g/dL (11.5-15.4); Immature Granulocytes % 0.4 % (0-4); Lymphocytes % 7.1 %; Mean Corpuscular HGB Conc 31.1 g/dL (31.6-35.5); Mean Corpuscular Hemoglobin 29.6 pg (28.0-33.3); Mean Corpuscular Volume 95.2 fL (83.0-100.0); Mean Platelet Volume 11.2 fL (9.4-12.4); Monocytes # 0.6 K/mcL (0.0-1.3); Monocytes % 4.1 %; Platelet Count 212 K/mcL (140-400); Red Blood Count 3.78 M/mcL (3.82-4.97); Red Cell Distribution Width 13.2 % (11.5-14.5); Segmented Neutrophils % 88.3 %; White Blood Count 13.6 K/mcL (4.3-11.1)
[2021-08-26 02:41] LABS: BUN/Creatinine Ratio 28 (6-26); Blood Urea Nitrogen 22 mg/dL (8-23); Calcium 9.2 mg/dL (8.6-10.3); Carbon Dioxide 25 mEq/L (23-29); Chloride 105 mEq/L (98-107); Glucose 208 mg/dL (70-105); Osmolality,Calculated 293 (280-300); Potassium 3.9 mEq/L (3.5-5.1); Sodium 137 mEq/L (136-145); eGFR For African Americans > 60 (> 60); eGFR For Non-African Americans > 60 (> 60)
[2021-08-26] MEDS: CeFAZolin 2 GM/120 ML BAG IVPB SCH (03:09)
[2021-08-26] MEDS ORDERED: Multivit/Ca/Min/Fe/FA 1 TAB TABLET PO SCH (09:00)
[2021-08-26] MEDS ORDERED: Loratadine 10 MG TABLET PO SCH (09:00)
[2021-08-26] MEDS ORDERED: Aspirin Enteric Coated 325 MG Tablet PO SCH (09:49)
[2021-08-26] MEDS: Multivit/Ca/Min/Fe/FA 1 TAB TABLET PO SCH (10:56)
[2021-08-26] MEDS: Ascorbic Acid 500 MG TABLET PO SCH ×2 (10:57→16:47)
[2021-08-26] MEDS: hydrOXYzine pamoate 25 MG CAPSULE PO SCH (10:57)
[2021-08-26] MEDS: *HR* OxyCODONE Immed Rel 5 MG TABLET PO PRN ×3 (10:57→20:53)
[2021-08-26] MEDS: Ringers Solution, Lactated 1,000 ML IVC SCH ×2 (19:21→21:41)
[2021-08-26] MEDS: Aspirin Enteric Coated 325 MG Tablet PO SCH ×2 (19:22→20:53)
[2021-08-26] MEDS ORDERED: hydrOXYzine pamoate 25 MG CAPSULE PO SCH (21:00)
[2021-08-27] MEDS: *HR* OxyCODONE Immed Rel 5 MG TABLET PO PRN ×2 (05:26→09:56)
[2021-08-27 06:58] LABS: Basophils % 0.2 %; Eosinophils % 0.1 %; Hematocrit 35.5 % (35.3-44.9); Hemoglobin 10.8 g/dL (11.5-15.4); Immature Granulocytes % 0.5 % (0-4); Lymphocytes # 2.7 K/mcL (0.6-4.6); Mean Corpuscular HGB Conc 30.4 g/dL (31.6-35.5); Mean Corpuscular Hemoglobin 28.6 pg (28.0-33.3); Mean Corpuscular Volume 94.2 fL (83.0-100.0); Mean Platelet Volume 11.1 fL (9.4-12.4); Monocytes # 1.5 K/mcL (0.0-1.3); Neutrophils # 10.7 K/mcL (1.6-8.9); Platelet Count 225 K/mcL (140-400); Red Blood Count 3.77 M/mcL (3.82-4.97); Red Cell Distribution Width 13.7 % (11.5-14.5); Segmented Neutrophils % 71.2 %
[2021-08-27 07:18] LABS: BUN/Creatinine Ratio 31 (6-26); Blood Urea Nitrogen 20 mg/dL (8-23); Calcium 9.3 mg/dL (8.6-10.3); Carbon Dioxide 30 mEq/L (23-29); Chloride 102 mEq/L (98-107); Glucose 108 mg/dL (70-105); Osmolality,Calculated 289 (280-300); Potassium 3.6 mEq/L (3.5-5.1); Sodium 138 mEq/L (136-145); eGFR For African Americans > 60 (> 60); eGFR For Non-African Americans > 60 (> 60)
[2021-08-27] MEDS: hydrOXYzine pamoate 25 MG CAPSULE PO SCH (08:34)
[2021-08-27] MEDS: Multivit/Ca/Min/Fe/FA 1 TAB TABLET PO SCH (08:35)
[2021-08-27] MEDS: Aspirin Enteric Coated 325 MG Tablet PO SCH (08:42)
[2021-08-27 11:17] VITALS: BP 118/71; PULSE 77; TEMP 98.6; O2SAT 97
[2021-08-27] MEDS: Ringers Solution, Lactated 1,000 ML IVC SCH (12:21)
[2021-08-27] MEDS: Ascorbic Acid 500 MG TABLET PO SCH (13:51)
== END 2021-08-27 14:46 | disposition home or self-care (01) ==
LOC: SDCAOSI 06:09 → 4WAOSI 06:09
PROVIDERS: ADMIT Physician Assistant; ATTEND Orthopaedic Surgery